=== PATIENT | female | born 1975 | race Caucasian/White ===

== ENCOUNTER 2021-12-13 22:56 | Emergency (ER) | payer SELFPAY ==
[2021-12-13 23:17] VITALS: BP 124/82; PULSE 84; TEMP 98.8; BMI 53.0
== END 2021-12-14 01:04 | disposition home or self-care (01) ==
LOC: FER 22:56
DX: R22.41 Localized swelling, mass and lump, right lower limb (principal); R60.0 Localized edema
CPT/HCPCS: 93971-TC; 99284-25